=== PATIENT | male | born 1980 | race Caucasian/White ===

== ENCOUNTER 2022-04-19 16:51 | Emergency (ER) | payer SELFPAY ==
[~2022-04-19] VITALS: Ht 175.3 cm; Wt 77.1 kg
[2022-04-19 17:09] VITALS: BP 137/82
[2022-04-19] MEDS ORDERED: KETOROLAC 30 MG/ML VIAL IM ONE (19:00)
--- NOTE | 2022-04-19 19:10 | NUR ---
seen and examined by PA, with order, carried out.
--- NOTE | 2022-04-19 19:20 | NUR ---
medicated as per PAs order, tolerated well
[2022-04-19] MEDS ORDERED: ACET-10509 PO (19:40)
--- NOTE | 2022-04-19 19:59 | NUR ---
PT'S LEFT ANKLE WRAPPED WITH 3" MARCIO WRAP. CMS WNL BEFORE AND AFTER. PT ALSO GIVEN CRUTCHES THAT WERE ADJUSTED TP PT'S SIZE AND HIEGHT. PT STATES THAT THEY ALREADY KNOW HOW TO USE THEM AND SHOWED PROPER DEMONSTRATION ON HOW TO USE THEM.
[2022-04-19 20:00] VITALS: BP 137/82
== END 2022-04-19 20:00 | disposition home or self-care (01) ==
LOC: MED 16:51
DX: M79.672 Pain in left foot (principal); Z79.899 Other long term (current) drug therapy
CPT/HCPCS: 96372; 99283; J1885